=== PATIENT | female | born 1970 | race Caucasian/White ===

== ENCOUNTER 2016-09-23 10:58 | Outpatient (CLI) | payer BC | END 2016-09-23 10:59 | disposition home or self-care (01) | DX: R92.1 Mammographic calcification found on diagnostic imaging of breast (principal) ==

== ENCOUNTER 2017-12-05 13:49 | Outpatient (CLI) | payer BC ==
--- NOTE | 2017-12-06 19:55 | Mammography Report ---
DIGITAL SCREENING MAMMOGRAM: 12/05/2017 CLINICAL INDICATION: A 46-year-old with history of late childbearing, history of benign biopsy for screening. COMPARISON: 09/2016, 08/2015, 06/2014, 05/2013, 05/2012, 04/2011, 01/2010 TECHNIQUE: Routine CC and MLO projections were obtained of the breasts. Bilateral laterally exaggerated craniocaudal views were obtained. FINDINGS: The breasts again demonstrate heterogeneously dense fibroglandular parenchyma bilaterally. Coarse and punctate, typically benign calcifications are present. No suspicious masses, clustered microcalcifications, or regions of architectural distortion are identified. IMPRESSION: BENIGN FINDINGS. RECOMMENDATION: Routine annual screening unless otherwise clinically indicated. BIRADS CATEGORY - 2 BENIGN FINDINGS. STANDARD QUALIFYING STATEMENTS: 1. This examination was reviewed with the aid of Computer-Aided Detection (CAD). 2. A negative or benign imaging report should not delay biopsy if clinically suspicious findings are present. Consider surgical consultation if warranted. More than 5% of cancers are not identified by imaging. 3. Dense breasts may obscure an underlying neoplasm. TD: 12/06/2017 19:54
== END 2017-12-05 13:50 | disposition home or self-care (01) ==
LOC: DI.N 13:49
PROVIDERS: ATTEND Physician Assistant Medical
DX: Z12.31 Encounter for screening mammogram for malignant neoplasm of breast (principal)
CPT/HCPCS: 77067

== ENCOUNTER 2019-03-14 08:47 | Day surgery (SDC) | payer BC ==
[2019-03-14] MEDS ORDERED: LACTATED RINGERS 1,000 ML IV ONE ×2 (09:21→11:31)
[2019-03-14 09:42] LABS: HCG UR QUAL NEGATIVE
[2019-03-14] MEDS ORDERED: MIDAZOLAM 2 MG/2 ML VIAL IVP ONE (10:20)
[2019-03-14] MEDS ORDERED: fentaNYL 250 MCG/5 ML VIAL IVP ONE (10:20)
[2019-03-14 12:07] VITALS: BP 104/67
== END 2019-03-14 08:48 | disposition home or self-care (01) ==
LOC: SDS 08:47
PROVIDERS: ATTEND Surgery
PROC: 0DJD8ZZ Inspection of Lower Intestinal Tract, Via Natural or Artificial Opening Endoscopic (ICD-10-PCS; principal; 2019-03-14 09:45)
DX: Z12.11 Encounter for screening for malignant neoplasm of colon (principal); I49.9 Cardiac arrhythmia, unspecified; Z83.71 Family history of colonic polyps
CPT/HCPCS: 45378; 81025; J3010; J7120

== ENCOUNTER 2021-02-27 07:54 | Outpatient (CLI) | payer BC, MEDICAID ==
[2021-02-27 11:47] LABS: BASOPHILS # (AUTO) 0.1 10^3/uL (0.0-0.1); BASOPHILS % (AUTO) 1.4 %; EOSINOPHILS # (AUTO) 0.3 10^3/uL (0.0-0.7); EOSINOPHILS % (AUTO) 5.4 %; HCT - HEMATOCRIT 43.9 % (37.0-47.0); HGB - HEMOGLOBIN 14.2 g/dL (12.0-16.0); LYMPHOCYTES # (AUTO) 1.6 10^3/uL (1.5-3.5); LYMPHOCYTES % (AUTO) 30.5 %; MEAN CORPUSCULAR HEMOGLOBIN 30.1 pg (27.0-31.0); MEAN CORPUSCULAR HGB CONC 32.3 g/dL (32.0-36.0); MEAN PLATELET VOLUME 11.8 fL (7.9-10.8); MONOCYTES # (AUTO) 0.5 10^3/uL (0.0-1.0); MONOCYTES % (AUTO) 9.1 %; NEUTROPHILS # (AUTO) 2.7 10^3/uL (1.5-6.6); NEUTROPHILS % (AUTO) 53.2 %; PLT - PLATELET COUNT 168 10^3/uL (130-450); RED BLOOD COUNT 4.72 10^6/uL (4.20-5.40); RED CELL DISTRIBUTION WIDTH 13.2 % (12.0-15.0); WHITE BLOOD COUNT 5.1 x10^3/uL (4.8-10.8)
[2021-02-27 12:25] LABS: ALBUMIN 3.9 g/dL (3.2-5.5); ALBUMIN/GLOBULIN RATIO 1.4 (1.0-2.2); ALKALINE PHOSPHATASE 50 IU/L (42-121); ALT ALANINE AMINOTRANSFERASE 20 IU/L (10-60); AST ASPARTATE AMINOTRANSFERASE 18 IU/L (10-42); BILIRUBIN,TOTAL 1.1 mg/dL (0.2-1.0); BUN - BLOOD UREA NITROGEN 21 mg/dL (6-20); CALCIUM 9.1 mg/dL (8.5-10.3); CARBON DIOXIDE - CO2 28 mmol/L (21-32); CHLORIDE 99 mmol/L (101-111); CHOLESTEROL 219 mg/dL; GFR - MDRD 58 (>89); GLUCOSE 92 mg/dL (70-100); HDL CHOLESTEROL 73 mg/dL; LDL CHOLESTEROL,CALCULATED 129 mg/dL; LDL/HDL RATIO 1.8 (<4.4); SODIUM 137 mmol/L (135-145); TOTAL PROTEIN 6.6 g/dL (6.7-8.2); TRIGLYCERIDES 84 mg/dL; VLDL CHOLESTEROL 17 mg/dL
[2021-02-27 12:32] LABS: THYROID STIMULATING HORMONE 4.13 uIU/mL (0.34-5.60)
== END 2021-02-27 23:59 | disposition home or self-care (01) ==
LOC: LAB.WCP 07:54
PROVIDERS: ATTEND Physician Assistant Medical
DX: Z00.00 Encounter for general adult medical examination without abnormal findings (principal)
CPT/HCPCS: 36415; 80053; 80061; 83721; 84443; 85025

== ENCOUNTER 2023-03-31 13:05 | Outpatient (CLI) | payer BC ==
--- NOTE | 2023-04-01 10:35 | Mammography Report ---
BILATERAL DIGITAL SCREENING MAMMOGRAM 3D/2D: 03/31/2023 CLINICAL: Routine screening. Comparison is made to exams dated: 03/23/2022 mammogram, 03/13/2020 mammogram, 12/05/2017 mammogram, 09/23 mammogram, 09/05/2015 mammogram, and 02/21/2015 mammogram - [facility]. Both breasts are heterogeneously dense, which may obscure small masses (category c / 51-75% glandular tissue). No significant masses, calcifications, or other findings are seen in either breast. There has been no significant interval change. IMPRESSION: NEGATIVE There is no mammographic evidence of malignancy. A 1 year screening mammogram is recommended. Based on the Tyrer Cuzick model (a risk assessment model) the patients lifetime risk is 14.7% and he r 10 year risk is 4.3%. According to the ACR, ACS, and NCCN guidelines, an annual breast MRI exam [place] with mammogram is recommended if the patients lifetime risk is 20% or greater. This exam was interpreted at Station ID: [id number]. NOTE: For mammograms, a report in lay terms will be sent to the patient. Approximately 15% of breast malignancies will not be visualized mammographically. In the management of a palpable breast mass, a negative mammogram must not discourage biopsy of a clinically suspicious lesion. Electronically Signed By: Venus daley/[email or web address]:03/31/2023 16:43:20 letter sent: No_Letter ACR BI-RADS Category 1: Negative 3341F PARENCHYMAL PATTERN: (D) - The breast(s) demonstrate(s) heterogeneously dense fibroglandular octavia gupta. BI-RADS CATEGORY: (1) - 1 Mammogram [id number] 1 year screening LATERALITY: (B)
== END 2023-03-31 13:06 | disposition home or self-care (01) ==
LOC: DI.N 13:05
DX: Z12.31 Encounter for screening mammogram for malignant neoplasm of breast (principal)

== ENCOUNTER 2024-04-03 08:13 | Outpatient (CLI) | payer BC ==
--- NOTE | 2024-04-04 13:42 | Mammography Report ---
BILATERAL DIGITAL SCREENING MAMMOGRAM 3D/2D: 04/03/2024 CLINICAL: Routine screening. Comparison is made to exams dated: 03/31/2023 mammogram, 03/23/2022 mammogram, 03/13/2020 mammogram, 11/14 mammogram, 09/23/2016 mammogram, and 09/05/2015 mammogram - [facility]. Both breasts are heterogeneously dense, which may obscure small masses (category c / 51-75% glandular tissue). No significant masses, calcifications, or other findings are seen in either breast. There has been no significant interval change. IMPRESSION: NEGATIVE There is no mammographic evidence of malignancy. A 1 year screening mammogram is recommended. Based on the Tyrer Cuzick model (a risk assessment model) the patient's lifetime risk is 14.5% and he r 10 year risk is 4.5%. According to the ACR, ACS, and NCCN guidelines, an annual breast MRI exam urban [place] with mammogram is recommended if the patient's lifetime risk is 20% or greater. This exam was interpreted at Station ID: [id number]. NOTE: For mammograms, a report in lay terms will be sent to the patient. Approximately 15% of breast malignancies will not be visualized mammographically. In the management of a palpable breast mass, a negative mammogram must not discourage biopsy of a clinically suspicious lesion. Electronically Signed By: Toña Salas M.D., Ph.D. /rachel:04/03/2024 09:10:08 letter sent: No_Letter ACR BI-RADS Category 1: Negative 3341F PARENCHYMAL PATTERN: (D) - The breast(s) demonstrate(s) heterogeneously dense fibroglandular octavia gupta. BI-RADS CATEGORY: (1) - 1 RECOMMENDATION: (ANNUAL) - Recommend routine annual screening mammography. [id number] 1 year screening LATERALITY: (B)
== END 2024-04-03 08:14 | disposition home or self-care (01) ==
LOC: DI.N 08:13
DX: Z12.31 Encounter for screening mammogram for malignant neoplasm of breast (principal); R92.333 Mammographic heterogeneous density, bilateral breasts

== ENCOUNTER 2024-05-10 08:15 | Outpatient (CLI) | payer BC ==
--- NOTE | 2024-05-10 16:30 | DEXA Report ---
PROCEDURE: Dexa Spine and/or Hip INDICATIONS: POST MENOPAUSAL TECHNIQUE: Dual energy x-ray absorptiometry (DXA) was performed on a [employer] System. Regions measur ed are the AP Spine, femoral neck, and if needed forearm. COMPARISON: None FINDINGS: Lumbar Spine: Bone Mineral Density: 1.017 g/cm/cm,T score: -1.4. Left Femoral Neck: Bone Mineral Density: 0.770 g/cm/cm, T score: -1.9. Left Hip: Bone Mineral Density: 0.799 g/cm/cm,T score: -1.7. FRAX risk factors: 10 year risk of major osteoporotic fracture: 7.8% major osteoporotic fracture = hip, clinical vertebral, proximal humerus, distal forearm 10 year risk of hip fracture: 0.9% (T score greater or equal to -1.0: NORMAL) (T score from -1.1 to -2.4: OSTEOPENIA) (T score less than or equal to -2.5 to: OSTEOPOROSIS) Impression: By WHO criteria, this patient has low bone density (osteopenia). Patients with diagnosis of osteoporosis or osteopenia should have regular bone mineral density assess ment. For those eligible for Medicare, routine testing is allowed once every 2 years. Testing frequ ency can be increased for patients who have rapidly progressing disease or for those who are receivin g medical therapy to restore bone mass. Reviewed by: Fadi Manzanares MD on 05/10/2024 4:28 PM PDT Approved by: Fadi Manzanares MD on 05/10/2024 4:28 PM PDT Station ID: [id number]
== END 2024-05-10 08:16 | disposition home or self-care (01) ==
LOC: DI 08:15
PROVIDERS: ATTEND Physician Assistant Medical
DX: M85.89 Other specified disorders of bone density and structure, multiple sites (principal); Z78.0 Asymptomatic menopausal state